=== PATIENT | female | born 1930 | race Caucasian/White ===

== ENCOUNTER 2020-07-18 05:54 | Inpatient (IN) ==
[2020-07-18] MEDS ORDERED: PANTOPRAZOLE 40 MG VIAL IV STA (06:21)
[2020-07-18 06:41] LABS: Basophils % 0.1 % (0.0-0.8); Hemoglobin 10.3 GM/DL (12.0-16.0); Immature Granulocytes % 0.3 %; Immature Granulocytes Absolute 0.04 #; Lymphocytes # 0.6 10*3/uL (1.4-4.0); Lymphocytes % 5.4 % (21.3-54.2); Mean Corpuscular HGB Conc 32.2 GM/DL (32-36); Mean Corpuscular Volume 99.1 FL (87-102); Mean Platelet Volume 10.4 FL (9.6-12.0); Monocytes % 9.2 % (1.7-12.7); Platelet Count 213 T/CUMM (130-400); Red Blood Count 3.23 MC/CUMM (3.8-5.5); Red Cell Distribution Width 13.6 % (9.3-17.3); White Blood Count 11.6 T/CUMM (4-12)
[2020-07-18 06:52] LABS: INR 2.9; Partial Thromboplastin Time 37.8 SECS (23.9-33.8)
[2020-07-18 07:07] LABS: Albumin 4.2 G/DL (3.4-5.0); Bilirubin,Total 1.2 MG/DL (0.2-1.0); Calcium 9.8 MG/DL (8.5-10.1); Osmolality,Calculated 290.3 MOS/KG (273-304); Total Protein 8.1 G/DL (6.4-8.3)
[2020-07-18] MEDS ORDERED: MORPHINE 4 MG/1 ML VIAL IV STA ×2 (07:21→08:34)
[2020-07-18] MEDS ORDERED: ONDANSETRON 4 MG/2 ML VIAL IV STA (07:25)
[2020-07-18] MEDS ORDERED: ONDANSETRON 4 MG/2 ML VIAL ONE (07:26)
[2020-07-18] MEDS ORDERED: BENZOCAINE/BUTAMBEN/TETRACAINE SPRAY 20 GM CAN TOP ONE (08:43)
[2020-07-18] MEDS ORDERED: OXYMETAZOLINE 0.05% NASAL SPRAY 15 ML BOTTLE ONE (08:43)
[2020-07-18] MEDS ORDERED: METOPROLOL TARTRATE 5 MG/5 ML VIAL IV ONE (10:58)
[2020-07-18] MEDS ORDERED: PROMETHAZINE 25 MG/1 ML VIAL IM PRN (10:58)
[2020-07-18] MEDS: ONDANSETRON 4 MG/2 ML VIAL IV PRN (11:41)
[2020-07-18] MEDS: METOPROLOL TARTRATE 5 MG/5 ML VIAL IV SCH ×3 (13:34→23:00)
[2020-07-18] MEDS ORDERED: ACETAMINOPHEN 650 MG SUPP RECTAL PRN (20:46)
[2020-07-19] MEDS ORDERED: dilTIAZem Drip 125 MG/125 ML PREMIX IV SCH
[2020-07-19] MEDS: MORPHINE 4 MG/1 ML VIAL IV PRN ×2 (00:48→17:24)
[2020-07-19 04:57] LABS: Basophils % 0.2 % (0.0-0.8); Hematocrit 30.8 VOL% (35.7-47.0); Hemoglobin 9.7 GM/DL (12.0-16.0); Immature Granulocytes % 0.8 %; Immature Granulocytes Absolute 0.05 #; Lymphocytes # 0.5 10*3/uL (1.4-4.0); Lymphocytes % 7.6 % (21.3-54.2); Mean Corpuscular HGB Conc 31.5 GM/DL (32-36); Mean Platelet Volume 11.1 FL (9.6-12.0); Monocytes % 31.5 % (1.7-12.7); Neutrophils % 59.9 % (38.7-73.9); Platelet Count 213 T/CUMM (130-400); Red Blood Count 3.08 MC/CUMM (3.8-5.5); Red Cell Distribution Width 13.8 % (9.3-17.3); White Blood Count 6.5 T/CUMM (4-12)
[2020-07-19 05:14] LABS: PT Patient Result 64.5 SECS (9.8-11.9)
[2020-07-19 05:24] LABS: Band Neutrophils 18 % (0-10); Eosinophils 1 % (0-10); Lymphocytes 23 % (20-55); Metamyelocytes 1 %; Segmented Neutrophils 43 % (50-85); Total Cells Counted 100
[2020-07-19 05:25] LABS: Hypochromasia Slight; Macrocytosis Slight; Platelet Estimate Normal
[2020-07-19 05:28] LABS: Albumin 3.6 G/DL (3.4-5.0); Bilirubin,Total 1.1 MG/DL (0.2-1.0); Risk Ratio 1.62; Thyroid Stimulating Hormone 0.369 uIU/ml (0.358-3.74)
[2020-07-19 05:40] LABS: INR 6.7
[2020-07-19 06:57] LABS: PT Patient Result 66.4 SECS (9.8-11.9)
[2020-07-19 07:01] LABS: INR 6.9
[2020-07-19] MEDS ORDERED: PHYTONADIONE 10 MG/1 ML AMP SUBCUT ONE (09:28)
[2020-07-19] MEDS: SODIUM CHLORIDE 0.9% 1,000 ML IV SCH ×2 (09:40→21:45)
[2020-07-20 05:17] LABS: Basophils # 0.1 10*3/uL (0.0-0.2); Basophils % 0.7 % (0.0-0.8); Hematocrit 27.1 VOL% (35.7-47.0); Hemoglobin 8.7 GM/DL (12.0-16.0); Immature Granulocytes % 0.6 %; Immature Granulocytes Absolute 0.05 #; Lymphocytes # 0.7 10*3/uL (1.4-4.0); Lymphocytes % 7.7 % (21.3-54.2); Mean Corpuscular HGB Conc 32.1 GM/DL (32-36); Mean Corpuscular Volume 97.1 FL (87-102); Mean Platelet Volume 10.8 FL (9.6-12.0); Monocytes % 22.5 % (1.7-12.7); Neutrophils % 68.5 % (38.7-73.9); Platelet Count 170 T/CUMM (130-400); Red Blood Count 2.79 MC/CUMM (3.8-5.5); Red Cell Distribution Width 13.6 % (9.3-17.3); White Blood Count 8.6 T/CUMM (4-12)
[2020-07-20 05:23] LABS: INR 2.7; PT Patient Result 27.2 SECS (9.8-11.9)
[2020-07-20 05:34] LABS: Albumin 2.9 G/DL (3.4-5.0); Bilirubin,Total 1.1 MG/DL (0.2-1.0); Calcium 7.7 MG/DL (8.5-10.1); Osmolality,Calculated 294.1 MOS/KG (273-304); Total Protein 6.1 G/DL (6.4-8.3)
[2020-07-20 05:37] LABS: Band Neutrophils 6 % (0-10); Eosinophils 1 % (0-10); Lymphocytes 11 % (20-55); Platelet Estimate Adequate; Segmented Neutrophils 64 % (50-85); Total Cells Counted 100
[2020-07-20 05:38] LABS: Hypochromasia 1+; Microcytosis Slight; Ovalocytes Slight
[2020-07-20] MEDS ORDERED: LEVOTHYROXINE 100 MCG VIAL IV SCH ×2 (06:30→08:13)
[2020-07-20] MEDS ORDERED: LACTATED RINGERS 1,000 ML IV ONE (07:37)
[2020-07-20] MEDS: MORPHINE 4 MG/1 ML VIAL IV PRN ×3 (08:45→21:00)
[2020-07-20] MEDS: LACTATED RINGERS 1,000 ML IV SCH (09:00)
[2020-07-20] MEDS: ONDANSETRON 4 MG/2 ML VIAL IV PRN (21:00)
[2020-07-20] MEDS ORDERED: DIGOXIN 0.5 MG/2 ML AMP IV ONE (22:27)
[2020-07-20] MEDS ORDERED: LEVALBUTEROL 1.25 MG/3 ML NEB RESP TX ONE (23:20)
[2020-07-20] MEDS: FLUTICASONE/SALMETEROL 500-50 DISKUS 14 DOSE INH SCH (23:29)
[2020-07-20] MEDS ORDERED: LEVALBUTEROL 1.25 MG/3 ML NEB RESP TX PRN (23:35)
[2020-07-20] MEDS ORDERED: methylPREDNISolone SOD SUC 125 MG/2 ML VIAL IV ONE (23:44)
[2020-07-21 02:56] LABS: ABG Base Excess -6.7 MMOL/L (-2.5-2.5); ABG HCO3 18.7 MMOL/L (20-26); ABG Oxygen Saturation 82.5 % (95-100); ABG PCO2 47.7 MM HG (35-48); ABG PH 7.244 (7.35-7.45); ABG PO2 56.4 MM HG (80-95); ABG TCO2 19.3 MMOL/L (23-27); Allen Test Positive
[2020-07-21 02:56] LABS: Basophils # 0.1 10*3/uL (0.0-0.2); Basophils % 0.6 % (0.0-0.8); Hematocrit 30.4 VOL% (35.7-47.0); Hemoglobin 9.7 GM/DL (12.0-16.0); Immature Granulocytes % 1.9 %; Immature Granulocytes Absolute 0.22 #; Lymphocytes # 0.5 10*3/uL (1.4-4.0); Lymphocytes % 4.1 % (21.3-54.2); Mean Corpuscular HGB Conc 31.9 GM/DL (32-36); Mean Corpuscular Volume 99.7 FL (87-102); Monocytes % 5.8 % (1.7-12.7); NRBC # 0.02 10*3/uL; Neutrophils % 87.6 % (38.7-73.9); Platelet Count 247 T/CUMM (130-400); Red Blood Count 3.05 MC/CUMM (3.8-5.5); Red Cell Distribution Width 14.1 % (9.3-17.3); White Blood Count 11.4 T/CUMM (4-12)
[2020-07-21 03:07] LABS: INR 1.5
[2020-07-21 03:11] LABS: Albumin 3.1 G/DL (3.4-5.0); Bilirubin,Total 1.2 MG/DL (0.2-1.0); Calcium 8.7 MG/DL (8.5-10.1); Total Protein 6.9 G/DL (6.4-8.3)
[2020-07-21 03:23] LABS: Band Neutrophils 5 % (0-10); Lymphocytes 9 % (20-55); Metamyelocytes 1 %; Myelocytes 3 %; Platelet Estimate Normal; Segmented Neutrophils 79 % (50-85); Total Cells Counted 100
[2020-07-21 03:24] LABS: Hypochromasia Slight
[2020-07-21] MEDS ORDERED: cefTRIAXone 1,000 MG in SYRINGE 1 EACH IV SCH (03:30)
[2020-07-21] MEDS ORDERED: AZITHROMYCIN INJ 500 MG in SODIUM CHLORIDE 0.9% 250 ML IV SCH (03:30)
[2020-07-21 03:46] LABS: Folate 16.4 NG/ML (5.4-24.0); Vitamin B12 > 2000 PG/ML (211-911)
[2020-07-21] MEDS: MORPHINE 4 MG/1 ML VIAL IV PRN (04:15)
[2020-07-21 04:43] LABS: Sedimentation Rate-Westergren 92 MM/HR (0-30)
[2020-07-21] MEDS ORDERED: FUROSEMIDE 40 MG/4 ML VIAL IV STA (05:27)
[2020-07-21 06:14] LABS: % Iron Saturation 6.1 % (18-50); Ferritin 244.4 ng/ml (8-252)
[2020-07-21] MEDS ORDERED: cefOXitin 2,000 MG in SYRINGE 1 EACH IV ONE (07:11)
[2020-07-21] MEDS ORDERED: AMPICILLIN/SULBACTAM 3,000 MG in SODIUM CHLORIDE 0.9% 100 ML IV SCH (08:00)
[2020-07-21] MEDS ORDERED: ETOMIDATE 20 MG/10 ML VIAL IV ONE (08:02)
[2020-07-21] MEDS ORDERED: PHENYLEPHRINE DRIP 40 MG/250 ML PREMIX IV ONE ×2 (08:14→13:45)
[2020-07-21 08:40] LABS: ABG Base Excess -8.3 MMOL/L (-2.5-2.5); ABG HCO3 17.2 MMOL/L (20-26); ABG Oxygen Saturation 83.4 % (95-100); ABG PCO2 35.1 MM HG (35-48); ABG PH 7.307 (7.35-7.45); ABG TCO2 18.2 MMOL/L (23-27); Glucose Heart Surgery 123 MG/DL (74-106); Hemoglobin Heart Surgery 10.8 G/DL (12.0-16.0); Potassium Heart/CVR 4.4 MMOL/L (3.5-5.1)
[2020-07-21] MEDS: PHENYLEPHRINE DRIP 40 MG/250 ML PREMIX IV PRN ×3 (08:43→13:38)
[2020-07-21] MEDS ORDERED: NOREPINEPHRINE 4 MG/4 ML VIAL IV ONE (10:30)
[2020-07-21] MEDS ORDERED: HYDROmorphone 2 MG/1 ML VIAL IV PRN ×2 (10:45→23:01)
[2020-07-21] MEDS ORDERED: ALBUTEROL INHALER 18 GM INH ONE (10:46)
[2020-07-21] MEDS ORDERED: ALBUMIN 5% 12.5 GM/250 ML VIAL IV ONE (10:46)
[2020-07-21] MEDS ORDERED: PHENYLEPHRINE DRIP 20 MG/250 ML PREMIX IV ONE (10:46)
[2020-07-21] MEDS ORDERED: ROCURONIUM 100 MG/10 ML VIAL IV ONE (10:46)
[2020-07-21] MEDS ORDERED: MIDAZOLAM 2 MG/2 ML VIAL ONE ×2 (10:47)
[2020-07-21 10:49] LABS: ABG Base Excess -9.8 MMOL/L (-2.5-2.5); ABG HCO3 16.5 MMOL/L (20-26); ABG Oxygen Saturation 88.5 % (95-100); ABG TCO2 17.3 MMOL/L (23-27)
[2020-07-21 10:51] LABS: Basophils % 0.8 % (0.0-0.8); Hematocrit 29.6 VOL% (35.7-47.0); Hemoglobin 9.4 GM/DL (12.0-16.0); Immature Granulocytes % 3.4 %; Immature Granulocytes Absolute 0.13 #; Lymphocytes # 0.4 10*3/uL (1.4-4.0); Lymphocytes % 9.8 % (21.3-54.2); Mean Corpuscular HGB Conc 31.8 GM/DL (32-36); Monocytes % 7.7 % (1.7-12.7); NRBC # 0.05 10*3/uL; Neutrophils % 78.3 % (38.7-73.9); Platelet Count 210 T/CUMM (130-400); Red Blood Count 2.96 MC/CUMM (3.8-5.5); Red Cell Distribution Width 14.3 % (9.3-17.3); White Blood Count 3.8 T/CUMM (4-12)
[2020-07-21] MEDS ORDERED: DIGOXIN 0.5 MG/2 ML AMP IV ONE ×2 (10:55→18:21)
[2020-07-21] MEDS ORDERED: MIDAZOLAM 100 MG in SODIUM CHLORIDE 0.9% 80 ML IV PRN (11:07)
[2020-07-21] MEDS: NOREPINEPHRINE 8 MG in SODIUM CHLORIDE 0.9% 242 ML IV PRN ×2 (11:09→20:11)
[2020-07-21 11:11] LABS: Albumin 2.7 G/DL (3.4-5.0); Bilirubin,Total 0.8 MG/DL (0.2-1.0); Calcium 7.9 MG/DL (8.5-10.1); Osmolality,Calculated 306.5 MOS/KG (273-304); Total Protein 5.6 G/DL (6.4-8.3)
[2020-07-21] MEDS ORDERED: SODIUM BICARBONATE 50 MEQ/50 ML VIAL IV ONE ×2 (11:11→11:13)
[2020-07-21 11:17] LABS: Band Neutrophils 36 % (0-10); Lymphocytes 12 % (20-55); Metamyelocytes 4 %; Myelocytes 13 %; Nucleated Red Blood Cells 4 (0-5); Segmented Neutrophils 29 % (50-85); Total Cells Counted 100
[2020-07-21 11:18] LABS: Burr Cells Slight; Hypochromasia 1+; Microcytosis Slight; Ovalocytes Slight; Platelet Estimate Adequate
[2020-07-21] MEDS: FLUTICASONE/SALMETEROL 500-50 DISKUS 14 DOSE INH SCH ×2 (11:25→20:16)
[2020-07-21] MEDS: LACTATED RINGERS 1,000 ML IV SCH ×5 (11:25→21:32)
[2020-07-21] MEDS ORDERED: DIGOXIN 0.5 MG/2 ML AMP ONE (11:32)
[2020-07-21] MEDS: AMPICILLIN/SULBACTAM 3,000 MG in SODIUM CHLORIDE 0.9% 100 ML IV SCH ×2 (11:38→20:12)
[2020-07-21 11:56] LABS: INR 1.7; PT Patient Result 17.3 SECS (9.8-11.9)
[2020-07-21 11:59] LABS: Hemoglobin A1 (Alkaline) 96.9 % (96.5-98.5); Hemoglobin A2 (Alkaline) 3.1 % (1.5-3.5)
[2020-07-21] MEDS ORDERED: DEXTROSE 50% 25 GM/50 ML VIAL IV PRN (12:11)
[2020-07-21] MEDS ORDERED: GLUCAGON 1 MG VIAL IM PRN (12:11)
[2020-07-21] MEDS ORDERED: PHENYLEPHRINE INJ 80 MG in SODIUM CHLORIDE 0.9% 242 ML IV PRN ×3 (13:03→16:13)
[2020-07-21] MEDS ORDERED: SODIUM CHLORIDE 0.9% 1,000 ML IV ONE (13:44)
[2020-07-21] MEDS ORDERED: PHENYLEPHRINE INJ 160 MG in SODIUM CHLORIDE 0.9% 234 ML IV PRN ×2 (16:12→17:29)
[2020-07-21] MEDS ORDERED: TRACE ELEMENTS IV SCH (17:00)
[2020-07-21] MEDS ORDERED: [UNRECOGNIZED DRUG - OTHER] IV SCH (17:00)
[2020-07-21] MEDS ORDERED: MULTIVITAMIN IV SCH (17:00)
[2020-07-21] MEDS ORDERED: DEXTROSE 10% 1,000 ML IV PRN (17:00)
[2020-07-21] MEDS ORDERED: INSULIN REGULAR 100 UNIT/ML SUBCUT SCH (18:00)
[2020-07-21 18:59] LABS: Calcium 6.9 MG/DL (8.5-10.1); Osmolality,Calculated 305.1 MOS/KG (273-304)
[2020-07-21 20:56] LABS: ABG Base Excess -11.2 MMOL/L (-2.5-2.5); ABG HCO3 14.9 MMOL/L (20-26); ABG Oxygen Saturation 78.6 % (95-100); ABG PCO2 34.2 MM HG (35-48); ABG PH 7.257 (7.35-7.45); ABG PO2 48.9 MM HG (80-95); ABG TCO2 15.9 MMOL/L (23-27)
[2020-07-21 23:48] VITALS: BP 71/26
[2020-07-22] MEDS ORDERED: TRACE ELEMENTS (5) 1 ML, MULTIVITAMIN INJ 10 ML in AMINO ACIDS/DEXT/LYTES 5-15% 2,000 ML IV SCH (17:00)
== END 2020-07-21 23:40 | disposition expired | DRG 329 ==
LOC: EDUNIT# → EDBD → N.ED 05:54 → SUATTDRO 08:29 → N.EDINP 08:29 → N.TELEN 09:17 → N.ICU 07-21 07:26
PROVIDERS: ADMIT Internal Medicine; ATTEND Internal Medicine